=== PATIENT | female | born 1950 | race Caucasian/White ===

== ENCOUNTER → 2017-01-23 | Outpatient (CLI) | payer OTHER | LOC: FIMAGING 13:25 | PROVIDERS: ATTEND Radiology Diagnostic Radiology | DX: Z13.6 Encounter for screening for cardiovascular disorders (principal); Z95.5 Presence of coronary angioplasty implant and graft; Z88.2 Allergy status to sulfonamides ==

== ENCOUNTER → 2017-12-13 | Outpatient (CLI) | payer OTHER | LOC: BMCIMAGING 17:18 | PROVIDERS: ATTEND Family Medicine | DX: R07.81 Pleurodynia (principal) | CPT/HCPCS: 71101-PO ==

== ENCOUNTER → 2018-01-16 | Outpatient (CLI) | payer OTHER | LOC: FIMAGING 12:39 | DX: Z95.828 Presence of other vascular implants and grafts (principal) ==

== ENCOUNTER → 2019-01-22 | Outpatient (CLI) | payer OTHER | LOC: FIMAGING 11:58 | DX: I65.22 Occlusion and stenosis of left carotid artery (principal); Z79.82 Long term (current) use of aspirin; Z87.891 Personal history of nicotine dependence ==

== ENCOUNTER → 2019-02-17 | Outpatient (CLI) | payer OTHER | LOC: BMCIMAGING 15:59 | PROVIDERS: ATTEND Podiatrist Foot & Ankle Surgery | DX: M79.671 Pain in right foot (principal); M20.11 Hallux valgus (acquired), right foot; M19.071 Primary osteoarthritis, right ankle and foot ==

== ENCOUNTER → 2019-02-23 | Outpatient (CLI) | payer OTHER | LOC: BMCIMAGING 10:52 | PROVIDERS: ATTEND Podiatrist Foot & Ankle Surgery | DX: Z13.820 Encounter for screening for osteoporosis (principal); M81.0 Age-related osteoporosis without current pathological fracture ==

== ENCOUNTER 2019-03-02 15:11 | Observation (INO) | payer OTHER ==
[2019-03-02] MEDS ORDERED: NS 1,000 ML IV ONE (15:17)
--- NOTE | 2019-03-02 15:18 | EDPHY ---
H & P Time Seen by Provider: 03/02/19 15:18 HPI/ROS: HPI CHIEF COMPLAINT: AFib with RVR HISTORY OF PRESENT ILLNESS: This patient is a 68-year-old female she has a history of a stroke, as well as emphysema, she was getting a bone neck to me done today however the surgery had to be canceled as she went into AFib with RVR in the 160s. She arrives to the emergency room by ambulance in AFib with RVR. Her heart rate was 160s. Upon evaluating her she became very upset about potentially getting admitted to the hospital and started crying. She took a deep breath in and somewhat vague old. This actually center heart rate from 160s to 107 however unfortunately discrete back up to the 130s. She denies chest pain or shortness of breath. She can feel her heart racing. She has never had diagnosed AFib. Past Medical History: Significant medical history for CVA, emphysema Past Surgical History: Attempted bunionectomy Social History: Denies drugs alcohol tobacco. Family History: Noncontributory ROS REVIEW OF SYSTEMS: 10 Systems were reviewed and negative with the exception of the elements mentioned in the history of present illness. Exam Constitutional triage nursing summary reviewed, vital signs reviewed, awake/ alert. Heart rate 161 -170s irregular. Eyes normal conjunctivae and sclera, EOMI, PERRLA. HENT normal inspection, atraumatic, moist mucus membranes, no epistaxis, neck supple/ no meningismus, no raccoon eyes. Respiratory clear to auscultation bilaterally, normal breath sounds, no respiratory distress, no wheezing. Cardiovascular tachycardia, irregular, irregular pattern. Gastrointestinal soft, non-tender, no rebound, no guarding, normal bowel sounds, no distension, no pulsatile mass. Genitourinary no CVA tenderness. Musculoskeletal no midline vertebral tenderness, full range of motion, no calf swelling, no tenderness of extremities, no meningismus, good pulses, neurovascularly intact. Skin pink, warm, & dry, no rash, skin atraumatic. Neurologic awake, alert and oriented x 3, AAOx3, moves all 4 extremities equally, motor intact, sensory intact, CN II-XII intact, normal cerebellar, normal vision, normal speech. Psychiatric normal mood/affect. Heme/Lymph/Immune no lymphadenopathy. Differential Diagnosis: Includes but is not limited to in a particular order AFib with RVR, SVT, AVR ENT, electrolyte disturbance, dehydration, infection Medical Decision Making: Plan for this patient IV establishment monitoring and evaluation advisor obtain EKG, IV fluid bolus, basic electrolytes, and re-evaluate. Re-evaluation: EKG interpretation by me on record in [employer] system. Impression time of EKG 154: Sinus rhythm rate of 85, biatrial enlargement, no acute ischemia. Patient's EKG time 4:02 p.m. This is a repeat EKG due to her going back into AFib, this shows AFib rate of 166, there is some ST depression in the inferior leads to 3 AVF, V2 V3 most likely rate related. No ST elevation I have consult the hospitalist service for AFib with RVR. Patient in the emergency room with multiple episodes of AFib with RVR somewhat intermittent improving now after IV diltiazem. She is not on any anticoagulation. She does not have a diagnosis or history of AFib other than subjectively saying she has intermittent irregular heart rate and palpitations. Plan for admission to the hospitalist service for further evaluation and workup for AFib with RVR Dr. Hurtado agrees to admit. Source: Patient, EMS - Personal History Tetanus Vaccine Date: < 10 YEARS - Medical/Surgical History Hx Asthma: No Hx Chronic Respiratory Disease: No Hx Diabetes: No Hx Cardiac Disease: No Hx Renal Disease: No Hx Cirrhosis: No Hx Alcoholism: No Hx HIV/AIDS: No Hx Splenectomy or Spleen Trauma: No Other PMH: HTN, HYPOTHYROID, L BREAST LUMPECTP,U/CVA 2014 - Social History Smoking Status: Light smoker Constitutional: Initial Vital Signs Temperature (C) 36.8 C 03/02/19 15:21 Heart Rate 116 H 03/02/19 15:21 Respiratory Rate 16 03/02/19 15:21 Blood Pressure 170/115 H 03/02/19 15:21 O2 Sat (%) 96 03/02/19 15:21 O2 Delivery Mode Room Air Allergies/Adverse Reactions: SULFA Allergy (Uncoded 03/02/19 15:20) Home Medications: Medication Instructions Recorded Aspirin [Aspirin 325 mg (*)] 325 mg PO DAILY 01/16/16 Atorvastatin Calcium [Lipitor 20 20 mg PO DAILY 01/16/16 mg (*)] Lisinopril [Zestril 5 mg (*)] 5 mg PO DAILY 01/16/16 Metoprolol Tartrate [Lopressor 50 50 mg PO BID 01/16/16 mg (*)] amLODIPine BESYLATE [Amlodipine 5 mg PO BID 01/16/16 Besylate] traZODone [traZODONE 50MG (*)] 50 mg PO HS 01/16/16 Thyroid,Pork [[place] Thyroid] 90 mg PO DAILY@0600 03/02/19 Apixaban [Eliquis] 5 mg PO BID #60 tab 03/03/19 Medical Decision Making - Data Points Laboratory Results: Laboratory Results 03/02/19 15:20 03/02/19 15:20 Medications Given: Discontinued Medications Amlodipine Besylate (Norvasc) 5 mg PO BID [facility] Stop: 08/29/19 20:59 Last Admin: 03/03/19 10:35 Dose: 5 mg Apixaban (Eliquis) 5 mg PO BID [facility] Stop: 08/30/19 11:14 Last Admin: 03/03/19 11:34 Dose: 5 mg Aspirin (Aspirin) 325 mg PO DAILY [facility] Stop: 08/30/19 08:59 Last Admin: 03/03/19 10:35 Dose: 325 mg Atorvastatin Calcium (Lipitor) 20 mg PO DAILY [facility] Stop: 08/30/19 08:59 Last Admin: 03/03/19 10:36 Dose: Not Given Diltiazem HCl (Cardizem 25 Mg/5 Ml Vial) 15 mg IVP EDNOW ONE Stop: 03/02/19 15:59 Last Admin: 03/02/19 16:14 Dose: 15 mg Enoxaparin Sodium (Lovenox) 60 mg SC BID [facility] Stop: 08/29/19 20:59 Last Admin: 03/03/19 11:24 Dose: Not Given Sodium Chloride (Ns) 1,000 mls @ 0 mls/hr IV EDNOW ONE; Wide Open PRN Reason: Protocol Stop: 03/02/19 15:18 Last Admin: 03/02/19 15:45 Dose: 1,000 mls Diltiazem/Dextrose (Diltiazem 125mg/125ml (Premix)) 125 mls @ 0 mls/hr IV EDNOW ONE; As Directed PRN Reason: Protocol Stop: 03/02/19 16:13 Last Admin: 03/02/19 16:58 Dose: 125 mls Diltiazem/Dextrose (Diltiazem 125mg/125ml (Premix)) 125 mls @ 0 mls/hr IV CONT [facility]; Per Protocol PRN Reason: Protocol Stop: 08/29/19 17:29 Last Admin: 03/02/19 19:52 Dose: 125 mls Sodium Chloride (Ns) 1,000 mls @ 150 mls/hr IV CONT [facility] Stop: 08/29/19 17:29 Last Admin: 03/03/19 02:27 Dose: 1,000 mls Lisinopril (Zestril) 5 mg PO DAILY [facility] Stop: 08/30/19 08:59 Last Admin: 03/03/19 10:35 Dose: 5 mg Metoprolol Tartrate (Lopressor) 50 mg PO BID [facility] Stop: 08/29/19 20:59 Last Admin: 03/02/19 19:51 Dose: 50 mg Metoprolol Tartrate (Lopressor) 50 mg PO BID [facility] Stop: 08/30/19 09:59 Last Admin: 03/03/19 10:34 Dose: 50 mg Oxycodone HCl (Oxycodone Ir) 5 - 10 mg PO Q3HRS PRN PRN Reason: Pain, Severe Able to Take PO Stop: 03/12/19 17:21 Last Admin: 03/02/19 21:49 Dose: 10 mg Thyroid ([place] Thyroid) 90 mg PO DAILY06 [facility] Stop: 08/30/19 05:59 Last Admin: 03/03/19 06:07 Dose: 90 mg Trazodone HCl (Trazodone) 50 mg PO HS [facility] Stop: 08/29/19 20:59 Last Admin: 03/02/19 21:50 Dose: 50 mg Point of Care Test Results: Chemistry 03/02/19 15:31 POC Troponin I 0.00 ng/mL ng/mL (0.00-0.08) Departure - Departure Disposition: [facility] Acute Clinical Impression: Atrial fibrillation with RVR Condition: Fair
[2019-03-02 15:37] LABS: PLATELET COUNT 261 10^3/uL (150-400)
[2019-03-02 15:45] LABS: INR 0.86 (0.83-1.16); PROTIME(PATIENT) 11.4 SEC (12.0-15.0)
[2019-03-02] MEDS ORDERED: DILTIAZEM 25 MG/5 ML VIAL IVP ONE (15:58)
[2019-03-02] MEDS ORDERED: DILTIAZEM HCL/D5W 125 ML IV ONE (16:12)
[2019-03-02] MEDS ORDERED: ONDANSETRON DISINTEGRATING 4 MG TAB PO PRN (17:22)
[2019-03-02] MEDS ORDERED: oxyCODONE IR 5 MG TAB PO PRN (17:22)
[2019-03-02] MEDS ORDERED: HYDROCODONE/APAP 5/325 TAB PO PRN (17:22)
[2019-03-02] MEDS ORDERED: LORazepam 0.5 MG TAB PO PRN (17:22)
[2019-03-02] MEDS ORDERED: PROMETHAZINE HCL 25 MG/ML INJ IVP PRN (17:22)
[2019-03-02] MEDS ORDERED: HYDROmorphONE/DILAUDID 1 MG/ML INJ IVP PRN (17:22)
[2019-03-02] MEDS ORDERED: LORazepam 2 MG/ML INJ IVP PRN (17:22)
[2019-03-02] MEDS ORDERED: ACETAMINOPHEN 325 MG TAB PO PRN (17:22)
[2019-03-02] MEDS ORDERED: ONDANSETRON 4 MG/2 ML VIAL IVP PRN (17:22)
[2019-03-02] MEDS ORDERED: DILTIAZEM HCL/D5W 125 ML IV SCH (17:30)
--- NOTE | 2019-03-02 17:57 | PDGENHP ---
History and Physical - Chief Complaint a fib--sent from surgical center - History of Present Illness 68 yo F with PMH that includes CVA, hx of carotic artery stenosis s/p stenting to left ICA presenting from the surgical center where she was scheduled for bunionectomy. During her pre op assessment she was found to have rapid heart rate which was found to be a fib w/rvr and therefore surgery was aborted and she was sent to ER for further evaluation. AT the time of my evaluation she is in a fib with a rate in the 160s, she denies any sob, chest pain, dizziness during these episodes. She notes she has never been diagnosed with a fib before but she thinks she likely has runs of it from time to time as at least once a week she has symptoms very similar to her current symptoms which she describes as rapid heart rate, and sometimes palpitations. She states it will last several hours generally when it occurs. She admits she really does not like going to the doctor ever since her stroke and prolonged hospitalization, so she never had this worked up. History Information - Allergies/Home Medication List Allergies/Adverse Reactions: SULFA Allergy (Uncoded 03/02/19 15:20) Home Medications: Thyroid,Pork [[place] Thyroid] 15 mg PO MOWEFR 10/18/15 [Last Taken 02/27/19] Aspirin [Aspirin 325 mg (*)] 325 mg PO DAILY 01/16/16 [Last Taken 02/24/19] Atorvastatin Calcium [Lipitor 20 mg (*)] 20 mg PO DAILY 01/16/16 [Last Taken ] Lisinopril [Zestril 5 mg (*)] 5 mg PO DAILY 01/16/16 [Last Taken 03/02/19] Metoprolol Tartrate [Lopressor 50 mg (*)] 50 mg PO BID 01/16/16 [Last Taken ] amLODIPine BESYLATE [Amlodipine Besylate] 5 mg PO BID 01/16/16 [Last Taken 03/02] traZODone [traZODONE 50MG (*)] 50 mg PO HS 01/16/16 [Last Taken 03/01/19] Thyroid,Pork [[place] Thyroid] 90 mg PO DAILY@0600 03/02/19 [Last Taken 03/02/19] I have personally reviewed and updated: family history, medical history, social history, surgical history - Past Medical History CVA (residual speech difficulty and right hand weakness), hypertension Additional medical history: hypothyroid. carotid stenosis - Surgical History Additional surgical history: cartoid stent - Family History Additional family history: both parents CHF - Social History Smoking Status: Current every day smoker (1/2 ppd) Alcohol Use: None Drug Use: None Additional social history: Review of Systems Review of Systems: ROS: 10pt was reviewed & negative except for what was stated in HPI & below Physical Exam Physical Exam: Temp Pulse Resp BP Pulse Ox 36.8 C 86 16 123/76 H 96 03/02/19 16:38 03/02/19 16:38 03/02/19 16:38 03/02/19 16:38 03/02/19 16:38 Constitutional: no apparent distress, appears nourished Eyes: PERRL, anicteric sclera Ears, Nose, Mouth, Throat: moist mucous membranes, hearing normal Cardiovascular: irregularly irregular, tachycardia, No edema Respiratory: no respiratory distress, no rales or rhonchi Gastrointestinal: normoactive bowel sounds, soft, non-tender abdomen Genitourinary: no bladder tenderness Skin: warm, normal color Musculoskeletal: full muscle strength Neurologic: AAOx3, weakness (right hand slightly weak/clumsy) Psychiatric: interacting appropriately, not anxious, not encephalopathic Lab Data & Imaging Review 03/02/19 15:20 03/02/19 15:20 WBC 10.14 10^3/uL (3.80-9.50) H 03/02/19 15:20 RBC 4.92 10^6/uL (4.18-5.33) 03/02/19 15:20 Hgb 16.0 g/dL (12.6-16.3) 03/02/19 15:20 Hct 47.7 % (38.0-47.0) H 03/02/19 15:20 MCV 97.0 fL (81.5-99.8) 03/02/19 15:20 MCH 32.5 pg (27.9-34.1) 03/02/19 15:20 MCHC 33.5 g/dL (32.4-36.7) 03/02/19 15:20 RDW 13.2 % (11.5-15.2) 03/02/19 15:20 Plt Count 261 10^3/uL (150-400) 03/02/19 15:20 MPV 10.6 fL (8.7-11.7) 03/02/19 15:20 Neut % (Auto) 58.1 % (39.3-74.2) 03/02/19 15:20 Lymph % (Auto) 24.5 % (15.0-45.0) 03/02/19 15:20 [place] % (Auto) 10.3 % (4.5-13.0) 03/02/19 15:20 Eos % (Auto) 5.8 % (0.6-7.6) 03/02/19 15:20 Baso % (Auto) 0.8 % (0.3-1.7) 03/02/19 15:20 Nucleat RBC Rel Count 0.0 % (0.0-0.2) 03/02/19 15:20 Absolute Neuts (auto) 5.90 10^3/uL (1.70-6.50) 03/02/19 15:20 Absolute Lymphs (auto) 2.48 10^3/uL (1.00-3.00) 03/02/19 15:20 Absolute Monos (auto) 1.04 10^3/uL (0.30-0.80) H 03/02/19 15:20 Absolute Eos (auto) 0.59 10^3/uL (0.03-0.40) H 03/02/19 15:20 Absolute Basos (auto) 0.08 10^3/uL (0.02-0.10) 03/02/19 15:20 Absolute Nucleated RBC 0.00 10^3/uL (0-0.01) 03/02/19 15:20 Immature Gran % 0.5 % (0.0-1.1) 03/02/19 15:20 Immature Gran # 0.05 10^3/uL (0.00-0.10) 03/02/19 15:20 PT 11.4 SEC (12.0-15.0) L 03/02/19 15:20 INR 0.86 (0.83-1.16) 03/02/19 15:20 APTT 21.5 SEC (23.0-38.0) L 03/02/19 15:20 Sodium 137 mEq/L (135-145) 03/02/19 15:20 Potassium 4.4 mEq/L (3.5-5.2) 03/02/19 15:20 Chloride 108 mEq/L (97-110) 03/02/19 15:20 Carbon Dioxide 18 mEq/l (22-31) L 03/02/19 15:20 Anion Gap 11 mEq/L (6-14) 03/02/19 15:20 BUN 20 mg/dL (7-23) 03/02/19 15:20 Creatinine 0.7 mg/dL (0.6-1.0) 03/02/19 15:20 Estimated GFR > 60 03/02/19:20 Glucose 93 mg/dL (70-100) 03/02/19:20 Calcium 10.2 mg/dL (8.5-10.4) 03/02/19 15:20 Magnesium 2.2 mg/dL (1.6-2.3) 03/02/19 15:20 POC Troponin I 0.00 ng/mL (0.00-0.08) 03/02/19 15:31 NT-Pro-B Natriuret Pep 391 pg/mL (0-125) H 03/02/19 15:20 Visualized and Interpreted Chest x-ray results: Yes Chest X-Ray results: other (? mild interstitial edema) Visualized and Interpreted EKG results: Yes EKG additional interpertation: a fib w/rvr, VPC Assessment & Plan Assessment: 68 yo F with prior hx of CVA, carotid disease, HTN presenting from surgical center with a fib w/rvr # a fib w/rvr: new diagnosis but likely not new for her given her sxs of recurrent rapid hr/palpitations at home. Given dilt in ER and converted spontaneously and then returned to a fib w/rvr. Will continue dilt gtt overnight. She is on metoprolol at home and query if increased metop might rate control her or if she needs new medication altogether. started lovenox, treatment dose, cardiology consulted. # hx of CVA: reportedly due to carotid stenosis and she is s/p left carotid stent, has some residual speech issues and right hand weakness, on asa, statin, bb but not on AC prior to this # HTN: BP on arrival slightly high, will continue her home medications including amlodipine, lisinopril. Holding metoprolol while on dilt gtt # hypothyroid: continue home regimen # nicotine dependence: counseled on cessation # observation status # Patient new to my care. Old records reviewed and summarized as above. Care plan reviewed with ER doctor including dilt gtt overnight.
[2019-03-02] MEDS ORDERED: METOPROLOL TARTRATE 50 MG TAB ONE (19:50)
[2019-03-02] MEDS: amLODIPine BESYLATE 5 MG TAB PO SCH (19:51)
[2019-03-02] MEDS: ENOXAPARIN 60 MG/0.6 ML SYR SC SCH (19:52)
[2019-03-02] MEDS: NS 1,000 ML IV SCH (19:53)
[2019-03-02] MEDS ORDERED: METOPROLOL TARTRATE 50 MG TAB PO SCH (21:00)
[2019-03-02] MEDS ORDERED: traZODone 50 MG TAB PO SCH (21:00)
[2019-03-03] MEDS: NS 1,000 ML IV SCH (02:27)
[2019-03-03] MEDS ORDERED: THYROID 60 MG TAB PO SCH (06:00)
[2019-03-03] MEDS ORDERED: ASPIRIN 325 MG TAB PO SCH (09:00)
[2019-03-03] MEDS ORDERED: LISINOPRIL 5 MG TAB PO SCH (09:00)
[2019-03-03] MEDS ORDERED: ATORVASTATIN CALCIUM 20 MG TAB PO SCH (09:00)
[2019-03-03] MEDS ORDERED: METOPROLOL TARTRATE 50 MG TAB PO SCH (10:00)
[2019-03-03] MEDS: amLODIPine BESYLATE 5 MG TAB PO SCH (10:35)
[2019-03-03] MEDS ORDERED: APIXABAN 5 MG TAB PO SCH (11:15)
[2019-03-03] MEDS: ENOXAPARIN 60 MG/0.6 ML SYR SC SCH (11:24)
--- NOTE | 2019-03-03 11:32 | ECHO ---
[email or web address] [address] [address] Main: [phone] Echocardiography Examination Transthoracic Name: MOHINI LAMBERT MR#: [id number] Study Date: 03/03/2019 Study Time: 08:23 AM Date of : 1950 Age: 68 year(s) Height: 165.1 cm (65 in.) Weight: 63.5 kg (140 lb.) BSA: 1.7 m2 Gender: Female Examination: Echo Contrast: Image Quality: Adequate Rhythm: Heart Rate: BP: 1 mmHg/ Indication: New onset A fib Procedure Staff Referring Physician: [place]: Reading Physician: Kirk Choudhary MD Requesting Provider: Ordering Physician: Olga Hurtado Indication: New onset A fib Measurements Chambers AV/MV Label Value Normal Value Label Value Normal Value LVDd, 2D 4.7 cm (3.9cm - 5.3cm) AV PGmean 5 mmHg LVDs, 2D 3 cm (2.1cm - 4cm) AV Vmax 1.51 m/s IVSd, 2D 0.6 cm (0.6cm - 1.1cm) MV E Vmax 1.18 m/s LVPWd, 2D 0.9 cm MV A Vmax 0.98 m/s LVEF, BP 72 % (55% - 70%) MV E/A 1.2 LVEF, 2D 64 % (54% - 74%) MV E/E' lateral 15.7 LA Volume, BP 59 ml (22ml - 52ml) MV E/E' septal 15.1 (0.45 - 1.25) LADs, 2D 3.4 cm (2.7cm - 3.8cm) MV E' septal 0.08 m/s LAESV index, BP 34.7 ml/m2 MV E' lateral 0.08 m/s Additional Vessels MV E/E' mean 14.75 Label Value Normal Value MV E' mean 0.08 m/s AoAsc 3.6 cm TV/PV AoRoot, MM 3 cm (2.2cm - 3.7cm) Label Value Normal Value RA Pressure 10 mmHg RVSP 38 mmHg TR Pmax 28 mmHg TR Vmax 2.63 m/s Patient: MOHINI LAMBERT Study Date: 03/03/2019 Page 1 of 2 08:23 AM Conclusions Echocardiogram demonstrates normal left ventricular size and function. Normal right ventricular size and function. Mild left atrial enlargement. No significant valvular abnormality. RV systolic pressure 30 mm of mercury. Findings Left Ventricle: Left ventricle is normal in size. Normal global systolic left ventricular function. The ejection fraction, measured by Simpsons method, is 72 %. EF range is estimated at 70 % - 75 %. Left ventricle wall thickness is normal. There are no regional wall motion abnormalities. Left ventricular diastolic function parameters are normal. IVS: The septum is intact. Right Ventricle: Normal size right ventricle. Right ventricular systolic function is normal. Left Atrium: The left atrium is mildly dilated. IAS: Normal appearing atrial septum. Right Atrium: The right atrium is normal in size. Mitral Valve: Mitral valve appears structurally normal. Mild mitral regurgitation. No mitral valve stenosis. There is mild mitral annular calcification. Aortic Valve: Aortic leaflets exhibit normal cuspal separation. No aortic valve regurgitation. There is no aortic stenosis. The aortic valve is trileaflet. Tricuspid Valve: Tricuspid valve leaflets are normal in appearance and function. Mild tricuspid regurgitation. No tricuspid valve stenosis. Right Ventricular systolic pressure is measured at 38 mmHg. Pulmonary artery pressure normal. Pulmonic Valve: Pulmonic leaflets exhibit normal cuspal separation. No pulmonic valve regurgitation is evident. There is no pulmonic valve stenosis. Aorta: The aorta is normal. The aortic root size in M-mode measures 3.0 cm. The ascending aorta measures 3.6 cm. Aorta Measurements AoRoot, MM is 3.0 cm. Pulmonary Artery: The pulmonary artery morphology appears normal. IVC: The inferior vena cava is normal in size and course. Pericardium: A pericardial fat pad is present. No pericardial effusion. No pleural effusion present. Exam Details Procedure Ordered: Echo Procedure Status: Routine study Image Quality: Adequate Facility Location: Cardiac Echo 1 (No Signature Object) Patient: MOHINI LAMBERT Study Date: 03/03/2019 Page 2 of 2 08:23 AM [id number]
[2019-03-03 11:33] VITALS: BP 112/70
--- NOTE | 2019-03-03 13:51 | ASMTCMCOM ---
CM Note CM Note Notes: Pts case discussed in tx rounds. Pt is a 68 y/o female admitted for afib with rvr. Therapies have cleared pt to d/c home without any needs. CM available for changes. Plan: Independent Date Signed: 03/03/2019 01:51 PM Electronically Signed By:ANDRES José
--- NOTE | 2019-03-03 14:12 | GCON ---
[f rep st] CONSULTATION CARDIOLOGY CONSULTATION DATE OF CONSULTATION: 03/03/2019 REFERRING PHYSICIAN: Olga Hurtado MD REASON FOR CONSULTATION: New onset of atrial fibrillation. HISTORY OF PRESENT ILLNESS: The patient is a pleasant 68-year-old female with a past medical history of hypertension, hyperlipidemia, carotid artery disease, status post left carotid stent in 2015, his tory of CVA with residual left-sided speech difficulties and right-sided hand weakness, who was in he r usual state of health until yesterday when she presented to the outpatient surgical center for buni onectomy. During preoperative evaluation, she was found to be in atrial fibrillation with rapid vent ricular response. She presented to [facility] for further evaluation. ECG demonstra alicia atrial fibrillation with rapid ventricular response with rates in the 160s. She had no complaint s of shortness of breath, dyspnea, PND, orthopnea. She had no complaints of dizziness, lightheadedne ss, or near syncope. She had no complaints of chest pain with the onset of atrial fibrillation. She has no previous diagnosis of atrial fibrillation, although she states she has felt a rapid irregu lar heartbeat over the last 2 years, occurring infrequently, but when it does occurs, it last between 30 and 60 minutes. She states that these previous episodes other than noticing a rapid heart rhythm were not associated with dizziness, lightheadedness, near syncope or syncope. She has no complaints of exertional chest pain or chest pressure. She has no complaints of exertiona l intolerance or fatigue. She has no complaints of shortness of breath or dyspnea on exertion. She denies any previous history of coronary artery disease. Currently, at the time of my exam, she is resting comfortably. She has returned to sinus rhythm spon taneously. She is currently at a rate of 60 beats per minute. PAST MEDICAL HISTORY: Notable for hypertension, hyperlipidemia, history of CVA in October 2016, his tory of carotid disease, status post peripheral stent on October 2016, to the left carotid. PAST SURGICAL HISTORY: Include carotid stenting, wrist surgery, and tonsillectomy as a child. MEDICATIONS: On admission, include aspirin 325 mg daily, lisinopril 5 mg daily, atorvastatin 20 mg d aily, metoprolol tartrate 50 mg p.o. b.i.d., trazodone 50 mg q.h.s., and [place] Thyroid 90 mg daily. SOCIAL HISTORY: She is . She lives with her . She is an ongoing smoker. She smokes approximately 10 cigarettes a day since the age of 18. She drinks approximately 5 alcoholic beverage s per week. She has 1 son who is 40, who has type 1 diabetes. 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 FAMILY HISTORY: Both her parents from congestive heart failure in her 80s. She has siblings wi th no known coronary disease or atrial fibrillation. She does have an older brother who from ca ncer. EXAM: GENERAL: She is awake, alert, oriented, appropriate in no apparent distress. VITAL SIGNS: B lood pressure 112/70, heart rate currently 65 in sinus rhythm, respiratory rate of 15, oxygen saturat ion 92% on room air, temperature 36.8. NECK: There is no evidence of JVP or carotid bruits. LUNGS: Clear to auscultation bilaterally. CARDIAC: S1, S2. Regular rate and rhythm. No murmurs, rubs, or gallops. ABDOMEN: Soft, nontender, nondistended. There is no pulsatile mass or abdominal bruit. EXTREMITIES: She has no evidence of cyanosis, clubbing, or edema. DATA: Lab work demonstrates sodium of 137, potassium 4.4, chloride 108, bicarb 18, BUN 20, creatinin e 0.7, magnesium 2.2. N-terminal proBNP 391. Serial troponins are less than 0.012 x3. TSH slightly low at 0.223, free T4 within normal limits at 1.15. White blood cell count of 10.1, hemoglobin 16, hematocrit 47.7, platelet count 261. ECG dated 03/02/2019, at 1600 demonstrates atrial fibrillation with rapid ventricular response at 166 beats per minute with ST depression noted in the lateral leads in V4 through V6. Chest x-ray demonstrates mild prominent interstitial markings at the lung base that could represent s ome mild interstitial edema. Complete 2D echocardiogram demonstrated normal left and right ventricular function. No significant v alvular disease. RV systolic pressure 30 mmHg. Mild right atrial enlargement. IMPRESSION: 1. New onset of atrial fibrillation with rapid ventricular response documented on ECG on March 02 019, at 1600. 2. CHADS2-VASc score of 6 equates to a 9.8% per year stroke risk off anticoagulation. 3. Hypertension. 4. Peripheral vascular disease, status post left carotid stenting. 5. Smoking history. PLAN: 1. Agree with Eliquis 5 mg p.o. b.i.d. based off age, weight, and renal function. 2. Rate control strategy at this point with metoprolol tartrate 50 mg p.o. b.i.d. 3. Patient will need outpatient exercise nuclear stress test in the setting of abnormal ECG with atr ial fibrillation with ST-segment depressions and multiple risk factors for coronary disease, includin g hypertension, hyperlipidemia, peripheral vascular disease, and 50 year history of smoking. 4. Patient will need overnight oximetry for possible underlying obstructive sleep apnea. 5. Patient will follow up with me in the office after completion of exercise nuclear stress test and overnight oximetry for consideration of further management. /[id number]/MODL
--- NOTE | 2019-03-03 14:53 | PDDCSUM ---
Discharge Summary Discharge Summary: Date of Admission: 03/02/2019 Date of Discharge: 03/03/2019 Consults: Cardiology Procedures: TTE Followup: Cardiology, PCP Hospital Course Problem List: 68 yo F with prior hx of CVA, carotid disease, HTN presenting from surgical center with a fib w/rvr # a fib w/rvr: new diagnosis but likely not new for her given her sxs of recurrent rapid hr/palpitations at home. Given dilt and converted spontaneously. She is on metoprolol at home. Cardiology consulted who recommends continuing home Metoprolol, agrees with Eliquis 5 mg BID given elevated CHADsVASC, will have patient f/u with cardiology for stress testing given abnormal EKG, sleep study for further evaluation # hx of CVA: reportedly due to carotid stenosis and she is s/p left carotid stent, has some residual speech issues and right hand weakness, on asa, statin, bb but not on AC prior to this, discharging on Eliquis as above # HTN: BP on arrival slightly high, will continue her home medications including amlodipine, lisinopril. # hypothyroid: TSH suppressed to 0.22 on admission, recommended to discontinue 15 mcg MWF and f/u with PCP in 4-6 weeks for repeat testing and further titration of thyroid replacement medication # nicotine dependence: counseled on cessation Time spent on discharge was >35 minutes with >50% of time spent on patient education and counseling.
--- NOTE | 2019-03-04 05:38 | CPEKG ---
Test Reason : OPEN Blood Pressure : / mmHG Vent. Rate : 058 BPM Atrial Rate : 059 BPM P-R Int : 166 ms QRS Dur : 086 ms QT Int : 432 ms P-R-T Axes : 054 -06 020 degrees QTc Int : 425 ms Sinus rhythm Confirmed by Isela Muniz ([id number]) on 03/04/2019 5:37:50 AM Referred By: Olga Hurtado Confirmed By:Isela Muniz
[2019-03-04] MEDS ORDERED: THYROID 60 MG TAB PO SCH (06:00)
--- NOTE | 2019-03-06 07:47 | CPEKG ---
Test Reason : OPEN Blood Pressure : / mmHG Vent. Rate : 166 BPM Atrial Rate : 178 BPM P-R Int : 095 ms QRS Dur : 079 ms QT Int : 315 ms P-R-T Axes : -80 -05 074 degrees QTc Int : 524 ms Atrial fibrillation with rapid V-rate Ventricular premature complex Abnormal R-wave progression, early transition ST depression, probably rate related Confirmed by Guy Hargrove ([id number]) on 03/06/2019 7:46:02 AM Referred By: Guy Hargrove Confirmed By:Guy Hargrove
--- NOTE | 2019-03-06 07:47 | CPEKG ---
Test Reason : OPEN Blood Pressure : / mmHG Vent. Rate : 085 BPM Atrial Rate : 077 BPM P-R Int : 167 ms QRS Dur : 085 ms QT Int : 383 ms P-R-T Axes : 061 -10 052 degrees QTc Int : 456 ms Sinus rhythm LAE, consider biatrial enlargement Abnormal R-wave progression, early transition Confirmed by Guy Hargrove ([id number]) on 03/06/2019 7:46:02 AM Referred By: Guy Hargrove Confirmed By:Guy Hargrove
== END 2019-03-03 15:40 | disposition home or self-care (01) ==
LOC: EDUNIT# → INTOOBSV 16:39 → F2W 18:13
PROVIDERS: ADMIT Internal Medicine; ATTEND Internal Medicine
PROC: 5A2204Z Restoration of Cardiac Rhythm, Single (ICD-10-PCS; principal; 2019-03-02)
DX: I48.91 Unspecified atrial fibrillation (principal); M20.11 Hallux valgus (acquired), right foot; E86.9 Volume depletion, unspecified; I69.328 Other speech and language deficits following cerebral infarction; I69.331 Monoplegia of upper limb following cerebral infarction affecting right dominant side; Z79.82 Long term (current) use of aspirin; Z79.899 Other long term (current) drug therapy; Z95.820 Peripheral vascular angioplasty status with implants and grafts; I10 Essential (primary) hypertension; E03.9 Hypothyroidism, unspecified; J43.9 Emphysema, unspecified; F17.210 Nicotine dependence, cigarettes, uncomplicated
CPT/HCPCS: 71045; 93005; 93306; 96361; 96372; 96374; 96375; 97161; 97165; 99285; G0378; J1650; 84484-ER

== ENCOUNTER 2019-03-06 17:04 | Inpatient (IN) | payer OTHER ==
[2019-03-06] MEDS ORDERED: NS 1,000 ML IV ONE ×2 (17:21→17:30)
[2019-03-06] MEDS ORDERED: ONDANSETRON 4 MG/2 ML VIAL IVP ONE (17:21)
--- NOTE | 2019-03-06 17:27 | EDPHY ---
H & P Stated Complaint: vomitting blood and black stool today, started eliquis this week Time Seen by Provider: 03/06/19 17:16 HPI/ROS: CHIEF COMPLAINT: Vomiting blood HISTORY OF PRESENT ILLNESS: Patient is a 68-year-old female who comes to the emergency department complaining of vomiting blood as well as having dark stool. She was diagnosed with atrial fibrillation on Saturday of this week and started on Eliquis. She felt fine until today when she has had 3 episodes of bloody vomit and 3 episodes of black loose stool. She feels lightheaded. She is hypotensive here at triage. Severity: Severe Modifying factors: None REVIEW OF SYSTEMS: Constitutional: denies: chills, fever, recent illness, recent injury EENTM: denies: blurred vision, double vision, nose congestion Respiratory: denies: cough, shortness of breath Cardiac: See HPI denies: chest pain, irregular heart rate, palpitations Gastrointestinal/Abdominal: See HPI Genitourinary: denies: dysuria, frequency, hematuria, pain Musculoskeletal: denies: joint pain, muscle pain Skin: denies: lesions, rash, jaundice, bruising Neurological: denies: headache, numbness, paresthesia, tingling, dizziness, weakness Hematologic/Lymphatic: denies: blood clots, easy bleeding, easy bruising Immunologic/allergic: denies: HIV/AIDS, transplant 10 systems reviewed and negative except as noted EXAM: GENERAL: Well-appearing, well-nourished and in no acute distress. HEAD: Atraumatic, normocephalic. EYES: Pupils equal round and reactive to light, extraocular movements intact, sclera anicteric, conjunctiva are normal. ENT: TMs normal, nares patent, oropharynx clear without exudates. Moist mucous membranes. NECK: Normal range of motion, supple without lymphadenopathy or JVD. LUNGS: Breath sounds clear to auscultation bilaterally and equal. No wheezes rales or rhonchi. HEART: Regular rate and rhythm without murmurs, rubs or gallops. ABDOMEN: Soft, nontender, normoactive bowel sounds. No guarding, no rebound. No masses appreciated. Rectal: Black tarry stool sent to the lab BACK: No CVA tenderness, no spinal tenderness, step-offs or deformities EXTREMITIES: Normal range of motion, no pitting or edema. No clubbing or cyanosis. NEUROLOGICAL: Cranial nerves II through XII grossly intact. Normal speech, normal gait. 5/5 strength, normal movement in all extremities, normal sensation , normal reflexes PSYCH: Normal mood, normal affect. SKIN: Warm, dry, normal turgor, no visible rashes or lesions. Source: Patient, Family Exam Limitations: No limitations - Personal History Tetanus Vaccine Date: < 10 YEARS - Medical/Surgical History Hx Asthma: No Hx Chronic Respiratory Disease: No Hx Diabetes: No Hx Cardiac Disease: No Hx Renal Disease: No Hx Cirrhosis: No Hx Alcoholism: No Hx HIV/AIDS: No Hx Splenectomy or Spleen Trauma: No Other PMH: HTN, HYPOTHYROID, L BREAST LUMPECTP,U/CVA 2015, AFIB - Family History Significant Family History: No pertinent family hx - Social History Smoking Status: Light smoker Alcohol Use: None Constitutional: Initial Vital Signs Temperature (C) 36.7 C 03/06/19 17:07 Heart Rate 85 03/06/19 17:07 Respiratory Rate 18 03/06/19 17:07 Blood Pressure 77/55 L 03/06/19 17:07 O2 Sat (%) 98 03/06/19 17:07 O2 Delivery Mode Room Air Allergies/Adverse Reactions: SULFA Allergy (Uncoded 03/06/19 17:07) Home Medications: Medication Instructions Recorded Aspirin [Aspirin 325 mg (*)] 325 mg PO DAILY 01/16/16 Atorvastatin Calcium [Lipitor 20 20 mg PO HS 01/16/16 mg (*)] Lisinopril [Zestril 5 mg (*)] 5 mg PO DAILY 01/16/16 Metoprolol Tartrate [Lopressor 50 50 mg PO BID 01/16/16 mg (*)] amLODIPine BESYLATE [Amlodipine 5 mg PO BID 01/16/16 Besylate] traZODone [traZODONE 50MG (*)] 50 mg PO HS 01/16/16 Thyroid,Pork [[place] Thyroid] 90 mg PO DAILY@0600 03/02/19 Apixaban [Eliquis] 5 mg PO BID #60 tab 03/03/19 Thyroid,Pork [[place] Thyroid] 15 mg PO MOWEFR 03/06/19 Medical Decision Making - Diagnostics EKG Interpretation: An EKG obtained and was read and documented in trace view. Please see trace view for full reading and report. Atrial fibrillation with RVR A repeat EKG obtained and was read and documented in trace view. Please see trace view for full reading and report. Sinus rhythm, no acute ischemic changes ED Course/Re-evaluation: 5:25 p.m. I discussed the case with Dr. Bettencourt who will admit. I have ordered case central and blood transfusion as well as IV fluids. I have also page GI. Will place ICU bed. Will place 2nd large-bore IV 5:45 p.m. the patient has now gone into atrial fibrillation with RVR rate of 130 -150. Her blood pressure is 85/61. Will cardiovert. She is anticoagulated. 5:55 p.m. the patient spontaneously converted to sinus rhythm in her blood pressure is now 92/46. KCentra has arrived. Blood transfusion has not yet began. We have paged GI 2nd time. 6:[address] Ady Sherman from GI who will consult but states that they will not be able to scope until she is stabilized and reversed. Differential Diagnosis: Partial list of the Differential diagnosis considered include but were not limited to; upper GI bleed, anticoagulation, atrial fibrillation, hypotension and although unlikely based on the history and physical exam, I also considered infection, perforation. Critical Care Time: Critical care time spent by me, Dr. Andrea exclusive with this patient was 45 minutes, exclusive of the PA time exclusive of procedures. The organ system that was at risk was cardiovascular/Gastroenterology and I gave IV fluids, reversal, transfusion, admission to prevent worsening of the patient's condition - Data Points Laboratory Results: Laboratory Results 03/06/19 17:15 03/06/19 17:15 03/06/19 03/06/19 03/06/19 17:15 17:15 17:15 WBC RBC Hgb Hct MCV MCH MCHC RDW Plt Count MPV Neut % (Auto) Lymph % (Auto) [place] % (Auto) Eos % (Auto) Baso % (Auto) Nucleat RBC Rel Count Absolute Neuts (auto) Absolute Lymphs (auto) Absolute Monos (auto) Absolute Eos (auto) Absolute Basos (auto) Absolute Nucleated RBC Immature Gran % Immature Gran # PT INR APTT Sodium 135 mEq/L mEq/L (135-145) Potassium 4.2 mEq/L mEq/L (3.5-5.2) Chloride 105 mEq/L mEq/L (97-110) Carbon Dioxide 15 mEq/l L mEq/l (22-31) Anion Gap 15 mEq/L H mEq/L (6-14) BUN 66 mg/dL H mg/dL (7-23) Creatinine 1.1 mg/dL H mg/dL (0.6-1.0) Estimated GFR 49 Glucose 156 mg/dL H mg/dL (70-100) Calcium 9.3 mg/dL mg/dL (8.5-10.4) Total Bilirubin 1.0 mg/dL mg/dL (0.1-1.4) Conjugated Bilirubin 0.5 mg/dL mg/dL (0.0-0.5) Unconjugated Bilirubin 0.5 mg/dL mg/dL (0.0-1.1) AST 50 IU/L H IU/L (14-46) ALT 96 IU/L H IU/L (9-52) Alkaline Phosphatase 182 IU/L H IU/L (38-126) Total Protein 6.3 g/dL g/dL (6.3-8.2) Albumin 3.9 g/dL g/dL (3.5-5.0) Stool Occult Bld Scrn POSITIVE H (NEGATIVE) Patient ABO/Rh O POSITIVE Antibody Screen NEGATIVE Crossmatch IS Only See Detail 03/06/19 03/06/19 17:15 17:15 WBC 15.87 10^3/uL H 10^3/uL (3.80-9.50) RBC 3.95 10^6/uL L 10^6/uL (4.18-5.33) Hgb 12.8 g/dL g/dL (12.6-16.3) Hct 39.5 % % (38.0-47.0) MCV 100.0 fL H fL (81.5-99.8) MCH 32.4 pg pg (27.9-34.1) MCHC 32.4 g/dL g/dL (32.4-36.7) RDW 13.2 % % (11.5-15.2) Plt Count 266 10^3/uL 10^3/uL (150-400) MPV 11.7 fL fL (8.7-11.7) Neut % (Auto) 71.7 % % (39.3-74.2) Lymph % (Auto) 15.1 % % (15.0-45.0) [place] % (Auto) 9.4 % % (4.5-13.0) Eos % (Auto) 1.8 % % (0.6-7.6) Baso % (Auto) 0.5 % % (0.3-1.7) Nucleat RBC Rel Count 0.0 % % (0.0-0.2) Absolute Neuts (auto) 11.38 10^3/uL H 10^3/uL (1.70-6.50) Absolute Lymphs (auto) 2.39 10^3/uL 10^3/uL (1.00-3.00) Absolute Monos (auto) 1.49 10^3/uL H 10^3/uL (0.30-0.80) Absolute Eos (auto) 0.29 10^3/uL 10^3/uL (0.03-0.40) Absolute Basos (auto) 0.08 10^3/uL 10^3/uL (0.02-0.10) Absolute Nucleated RBC 0.00 10^3/uL 10^3/uL (0-0.01) Immature Gran % 1.5 % H % (0.0-1.1) Immature Gran # 0.24 10^3/uL H 10^3/uL (0.00-0.10) PT 15.2 SEC H SEC (12.0-15.0) INR 1.25 H (0.83-1.16) APTT 25.2 SEC SEC (23.0-38.0) Sodium Potassium Chloride Carbon Dioxide Anion Gap BUN Creatinine Estimated GFR Glucose Calcium Total Bilirubin Conjugated Bilirubin Unconjugated Bilirubin AST ALT Alkaline Phosphatase Total Protein Albumin Stool Occult Bld Scrn Patient ABO/Rh Antibody Screen Crossmatch IS Only Medications Given: Pantoprazole Sodium (Protonix) 40 mg IVP Q6H LUKAS Stop: 09/02/19 23:21 Last Admin: 03/06/19 17:32 Dose: 40 mg Discontinued Medications Sodium Chloride (Ns) 1,000 mls @ 0 mls/hr IV EDNOW ONE; Wide Open PRN Reason: Protocol Stop: 03/06/19 17:22 Last Admin: 03/06/19 17:29 Dose: 1,000 mls Prothrombin Complex Concent (Human) (Kcentra) 3,000 unit in 120 mls @ 480 mls/ hr IV ONCE ONE; Per Protocol PRN Reason: Protocol Stop: 03/06/19 18:14 Last Admin: 03/06/19 18:06 Dose: 120 mls Sodium Chloride (Ns) 1,000 mls @ 0 mls/hr IV ONCE ONE PRN Reason: Wide Open Stop: 03/06/19 17:31 Last Admin: 03/06/19 17:35 Dose: 1,000 mls Ondansetron HCl (Zofran) 4 mg IVP EDNOW ONE Stop: 03/06/19 17:22 Last Admin: 03/06/19 19:20 Dose: Not Given Departure - Departure Disposition: [facility] Inpatient Acute Clinical Impression: Upper GI bleed Atrial fibrillation Qualifiers: Atrial fibrillation type: unspecified Qualified Code(s): I48.91 - Unspecified atrial fibrillation Condition: Critical
[2019-03-06] MEDS ORDERED: PANTOPRAZOLE SODIUM 40 MG VIAL ONE (17:31)
[2019-03-06] MEDS: PANTOPRAZOLE SODIUM 40 MG VIAL IVP SCH (17:32)
--- NOTE | 2019-03-06 17:50 | CPEKG ---
Test Reason : OPEN Blood Pressure : / mmHG Vent. Rate : 148 BPM Atrial Rate : 160 BPM P-R Int : 097 ms QRS Dur : 078 ms QT Int : 276 ms P-R-T Axes : -17 -04 217 degrees QTc Int : 434 ms Atrial fibrillation Ventricular premature complex Confirmed by Stevenson Andrea ([id number]) on 03/06/2019 5:49:50 PM Referred By: Stevenson Andrea Confirmed By:Stevenson Andrea
[2019-03-06 17:52] LABS: PLATELET COUNT 266 10^3/uL (150-400)
[2019-03-06] MEDS ORDERED: oxyCODONE IR 5 MG TAB PO PRN (17:59)
[2019-03-06] MEDS ORDERED: HYDROmorphONE/DILAUDID 1 MG/ML INJ IVP PRN (17:59)
[2019-03-06] MEDS ORDERED: HYDROCODONE/APAP 5/325 TAB PO PRN (17:59)
[2019-03-06] MEDS ORDERED: PROMETHAZINE HCL 25 MG/ML INJ IVP PRN (17:59)
[2019-03-06] MEDS ORDERED: ACETAMINOPHEN 325 MG TAB PO PRN (17:59)
[2019-03-06] MEDS ORDERED: ONDANSETRON DISINTEGRATING 4 MG TAB PO PRN (17:59)
[2019-03-06] MEDS ORDERED: ONDANSETRON 4 MG/2 ML VIAL IVP PRN (17:59)
[2019-03-06] MEDS ORDERED: NS 1,000 ML IV SCH (18:00)
[2019-03-06] MEDS ORDERED: PROTHROMBIN COMPLEX CONCENTRATE IV ONE (18:00)
--- NOTE | 2019-03-06 18:02 | CPEKG ---
Test Reason : OPEN Blood Pressure : / mmHG Vent. Rate : 076 BPM Atrial Rate : 076 BPM P-R Int : 162 ms QRS Dur : 080 ms QT Int : 403 ms P-R-T Axes : 056 -16 044 degrees QTc Int : 454 ms Sinus rhythm Borderline left axis deviation Confirmed by Stevenson Andrea ([id number]) on 03/06/2019 6:01:09 PM Referred By: Olga Hurtado Confirmed By:Stevenson Andrea
--- NOTE | 2019-03-06 18:06 | PDGENHP ---
History and Physical - Chief Complaint vomiting blood - History of Present Illness 68 yo F with PMH of CVA and recent dx of afib, actually discharged on 03/03 for that with a new rx for eliquis. Patient had been feeling a bit lightheaded since yesterday per her report, but then today she began vomiting blood and having dark stools. She notes she vomited bright red blood 3 times today. She has not had significant abdominal pain. She has never had similar issues in the past. She was noted to be hypotensive and with rapid a fib in the ER with rates up to the 160s, given her ongoing hypotension she was sedated and cardioverted in ER. She denies any chest pain or SOB. History Information - Allergies/Home Medication List Allergies/Adverse Reactions: SULFA Allergy (Uncoded 03/06/19 17:07) Home Medications: Aspirin [Aspirin 325 mg (*)] 325 mg PO DAILY 01/16/16 [Last Taken 03/06/19] Atorvastatin Calcium [Lipitor 20 mg (*)] 20 mg PO HS 01/16/16 [Last Taken ] Lisinopril [Zestril 5 mg (*)] 5 mg PO DAILY 01/16/16 [Last Taken 03/06/19] Metoprolol Tartrate [Lopressor 50 mg (*)] 50 mg PO BID 01/16/16 [Last Taken ] amLODIPine BESYLATE [Amlodipine Besylate] 5 mg PO BID 01/16/16 [Last Taken 03/06] traZODone [traZODONE 50MG (*)] 50 mg PO HS 01/16/16 [Last Taken 03/05/19] Thyroid,Pork [[place] Thyroid] 90 mg PO DAILY@0600 03/02/19 [Last Taken 03/06/19] Thyroid,Pork [[place] Thyroid] 15 mg PO MOWEFR 03/06/19 [Last Taken 03/06/19] I have personally reviewed and updated: family history, medical history, social history, surgical history - Past Medical History atrial fibrillation, CVA (residual speech difficulty and right hand weakness), hypertension Additional medical history: hypothyroid. carotid stenosis - Surgical History Reports: no pertinent surgical hx Additional surgical history: cartoid stent - Family History Additional family history: both parents CHF - Social History Smoking Status: Light smoker Alcohol Use: None Drug Use: None Additional social history: Review of Systems Review of Systems: ROS: 10pt was reviewed & negative except for what was stated in HPI & below Physical Exam Physical Exam: Temp Pulse Resp BP Pulse Ox 36.7 C 85 18 77/55 L 98 03/06/19 17:07 03/06/19 17:07 03/06/19 17:07 03/06/19 17:07 03/06/19 17:07 Constitutional: chronically ill appearing, uncomfortable Eyes: PERRL, anicteric sclera Ears, Nose, Mouth, Throat: hearing normal, dry mucous membranes Cardiovascular: irregularly irregular, tachycardia, No edema Respiratory: no respiratory distress, no rales or rhonchi Gastrointestinal: normoactive bowel sounds, soft, non-tender abdomen Genitourinary: no bladder tenderness Skin: warm, normal color Musculoskeletal: no muscle tenderness Neurologic: AAOx3 Psychiatric: interacting appropriately, not anxious, not encephalopathic Lab Data & Imaging Review 03/06/19 20:00 03/06/19 17:15 WBC 15.87 10^3/uL (3.80-9.50) H 03/06/19 17:15 RBC 3.95 10^6/uL (4.18-5.33) L 03/06/19 17:15 Hgb 12.8 g/dL (12.6-16.3) 03/06/19 17:15 Hct 39.5 % (38.0-47.0) 03/06/19 17:15 MCV 100.0 fL (81.5-99.8) H 03/06/19 17:15 MCH 32.4 pg (27.9-34.1) 03/06/19 17:15 MCHC 32.4 g/dL (32.4-36.7) 03/06/19 17:15 RDW 13.2 % (11.5-15.2) 03/06/19 17:15 Plt Count 266 10^3/uL (150-400) 03/06/19 17:15 MPV 11.7 fL (8.7-11.7) 03/06/19 17:15 Neut % (Auto) 71.7 % (39.3-74.2) 03/06/19 17:15 Lymph % (Auto) 15.1 % (15.0-45.0) 03/06/19 17:15 [place] % (Auto) 9.4 % (4.5-13.0) 03/06/19 17:15 Eos % (Auto) 1.8 % (0.6-7.6) 03/06/19 17:15 Baso % (Auto) 0.5 % (0.3-1.7) 03/06/19 17:15 Nucleat RBC Rel Count 0.0 % (0.0-0.2) 03/06/19 17:15 Absolute Neuts (auto) 11.38 10^3/uL (1.70-6.50) H 03/06/19 17:15 Absolute Lymphs (auto) 2.39 10^3/uL (1.00-3.00) 03/06/19 17:15 Absolute Monos (auto) 1.49 10^3/uL (0.30-0.80) H 03/06/19 17:15 Absolute Eos (auto) 0.29 10^3/uL (0.03-0.40) 03/06/19 17:15 Absolute Basos (auto) 0.08 10^3/uL (0.02-0.10) 03/06/19 17:15 Absolute Nucleated RBC 0.00 10^3/uL (0-0.01) 03/06/19 17:15 Immature Gran % 1.5 % (0.0-1.1) H 03/06/19 17:15 Immature Gran # 0.24 10^3/uL (0.00-0.10) H 03/06/19 17:15 Stool Occult Bld Scrn POSITIVE (NEGATIVE) H 03/06/19 17:15 Crossmatch IS Only See Detail 03/06/19 17:15 Visualized and Interpreted EKG results: Yes EKG additional interpertation: initial ECG with a fib w/rvr, f/u showing NSR- non ischemic Assessment & Plan Assessment: Upper GI bleed (Acute) Atrial fibrillation (Acute) 68 yo F with hx of CVA and recent dx of a fib started on eliquis this week presenting with GI bleed # upper GI bleed: with hematemesis and melena prior to presentation in setting of recently being started on AC as well as being on full dose asa. She has been given Kcentra in ER and has been ordered for 2 units PRBCs given rapid blood loss (h/h normal on presentation). GI consulted and plans for EGD in am. IV PPI TID. Hold asa/eliquis # a fib w/rvr: with associated hypotension in the setting of above, cardioverted in ER under sedation but unfortunately went back into a fib shortly after and then spontaneously converted again. Will try low dose IV dilt if recurs. Does have CHADSVasc of 6, however obviously high risk of bleed as above, for sure should not resume AC and full dose aspirin # hypotension: in setting of acute blood loss as well as a fib, holding anti- hypertensives, has been responding to IVF, a fib also contributing # LAZARUS: hemodynamically mediated given GI bleed/hypotension, IVF/monitoring # CVA: with only mild residual sxs of speech issues and some right hand clumsiness, was related to carotid disease as next # carotid disease: s/p stenting # HTN: will hold HTNsive medications given hypotension # acute blood loss anemia: rapid blood loss as above, transfusing, monitoring pressures # IP status, high risk requiring ICU level care, in addition to usual admission time an additional > 35 min care time spent in critical care of this patient, coordinating care with specialists, interpreting labs and managing patient at bedside with nursing FC Patient new to my care. Old records reviewed and summarized as above. Care plan reviewed with ER doctor and GI as above. Further hx obtained from patients present at bedside.
[2019-03-06 18:13] LABS: INR 1.25 (0.83-1.16); PROTIME(PATIENT) 15.2 SEC (12.0-15.0)
[2019-03-06] MEDS: ATORVASTATIN CALCIUM 20 MG TAB PO SCH (21:26)
[2019-03-06] MEDS: LORazepam 2 MG/ML INJ IVP PRN (22:11)
[2019-03-07 05:10] LABS: PLATELET COUNT 176 10^3/uL (150-400)
[2019-03-07] MEDS: PANTOPRAZOLE SODIUM 40 MG VIAL IVP SCH (06:38)
[2019-03-07] MEDS: THYROID 60 MG TAB PO SCH (06:38)
--- NOTE | 2019-03-07 06:57 | PDMN ---
Medical Necessity Medical necessity: Pt meets IP criteria as of 03/06/2019 per and MCG M-180 ( Upper GI Bleed); est los > 2 mn for ongoing tx and management of upper GI bleed with hematemesis and melena, pt recently started on AC, having hypotension, also in afib with RVR; requiring Kcentra, PRBC transfusion, IVF, further workup , and ICU level care.
--- NOTE | 2019-03-07 08:45 | SOAPPROG ---
SOAP Progress Note Assessment/Plan: Assessment:Plan: see full dictated consult to follow 68 y/o female with afib on Eliquis and ASA with UGI bleed was on rapid Afib last night now converted got k-centra BUN cr ratio down c/w hydration and no sig ongoing gi bleed did drop her HB c/w few unit bleed EGD this am with anesthesia Bryan Pereira MD [phone] 03/07/19 08:41 Objective: Vital Signs Temp Pulse Resp BP Pulse Ox 36.9 C 93 18 119/68 96 03/06/19 19:06 03/07/19 08:00 03/07/19 08:00 03/07/19 06:00 03/07/19 08:00 Laboratory Results 03/07/19 04:40 03/06/19 03/07/19 03/08/19 05:59 05:59 05:59 Intake Total 2800 Output Total 1000 Balance 1800 PT 15.2 SEC (12.0-15.0) H 03/06/19 17:15 INR 1.25 (0.83-1.16) H 03/06/19 17:15 ICD10 Worksheet Patient Problems: Problems Problem Status Onset Atrial fibrillation Acute Upper GI bleed Acute Atrial fibrillation with RVR Acute CVA (cerebral vascular accident) Acute Forehead laceration Acute
[2019-03-07] MEDS ORDERED: LIDOCAINE 2% 2 ML INJ ONE (09:25)
[2019-03-07] MEDS ORDERED: PROPOFOL 200 MG/20 ML VIAL ONE (09:25)
--- NOTE | 2019-03-07 09:27 | PDANEPAE ---
ANE History of Present Illness GI bleed ANE Past Medical History - Cardiovascular History Hx Hypertension: Yes Hx Arrhythmias: Yes Hx Chest Pain: No Hx Coronary Artery / Peripheral Vascular Disease: No Hx CHF / Valvular Disease: No Hx Palpitations: No Cardiovascular History Comment: a fib - Pulmonary History Hx COPD: No Hx Asthma/Reactive Airway Disease: No Hx Recent Upper Respiratory Infection: No Hx Oxygen in Use at Home: No Hx Sleep Apnea: Yes Sleep Apnea Screening Result - Last Documented: Negative - Neurologic History Hx Cerebrovascular Accident: Yes Neurologic History Comment: carotid stent - Endocrine History Hx Diabetes: No Hypothyroid: No Hyperthyroid: No Obesity: no - Renal History Hx Renal Disorders: No - Liver History Hx Hepatic Disorders: No - Cancer History Hx Cancer: No - Congenital Disorder History Hx Congenital Disorders: No - GI History GERD: mild Hx Gastrointestinal Disorders: Yes - Chronic Pain History Chronic Pain: No ANE Review of Systems Review of systems is: negative Review of Systems: ANE Patient History - Allergies Allergies/Adverse Reactions: SULFA Allergy (Uncoded 03/06/19 17:07) - Home Medications Home medications: home medication list seen and reviewed Home Medications: Aspirin [Aspirin 325 mg (*)] 325 mg PO DAILY 01/16/16 [Last Taken 03/06/19] Atorvastatin Calcium [Lipitor 20 mg (*)] 20 mg PO HS 01/16/16 [Last Taken ] Lisinopril [Zestril 5 mg (*)] 5 mg PO DAILY 01/16/16 [Last Taken 03/06/19] Metoprolol Tartrate [Lopressor 50 mg (*)] 50 mg PO BID 01/16/16 [Last Taken ] amLODIPine BESYLATE [Amlodipine Besylate] 5 mg PO BID 01/16/16 [Last Taken 03/06] traZODone [traZODONE 50MG (*)] 50 mg PO HS 01/16/16 [Last Taken 03/05/19] Thyroid,Pork [[place] Thyroid] 90 mg PO DAILY@0600 03/02/19 [Last Taken 03/06/19] Thyroid,Pork [[place] Thyroid] 15 mg PO MOWEFR 03/06/19 [Last Taken 03/06/19] - NPO status NPO Status: no food or drink >8 hours NPO Since - Liquids (Date): 03/06/19 NPO Since - Liquids (Time): 00:00 - Anes Hx Anes Hx: no prior problems - Smoking Hx Smoking Status: Light smoker - Alcohol Use Alcohol Use: None - Family Anes Hx Family Anes Hx: none ANE Labs/Vital Signs - Labs Result Diagrams: 03/07/19 07:50 03/07/19 04:40 - Vital Signs Blood Pressure: 118/74 Heart Rate: 92 Respiratory Rate: 19 O2 Sat (%): 95 Height: 165.1 cm Weight: 63.503 kg ANE Physical Exam - Airway Neck exam: FROM Mallampati Score: Class 2 Mouth exam: normal dental/mouth exam - Pulmonary Pulmonary: no respiratory distress, clear to auscultation - Cardiovascular Cardiovascular: regular rate and rhythym, no murmur, rub, or gallop - ASA Status ASA Status: III, E ANE Anesthesia Plan Anesthesia Plan: GA with mask Total IV Anesthesia: Yes
[2019-03-07] MEDS ORDERED: NALOXONE HCL 0.4 MG/ML INJ IVP PRN (09:47)
--- NOTE | 2019-03-07 09:48 | POSTANESTH ---
Post Anesthetic Evaluation Cardiovascular Status: Normal, Stable Respiratory Status: Normal, Stable Level of Consciousness/Mental Status: Can Participate in Eval Pain Control: Adequate, Prn Tx Ordered Nausea/Vomiting Control: Adequate, Prn Tx Ordered Complications Possibly Related to Anesthesia: None Noted
--- NOTE | 2019-03-07 10:06 | GIREPORT ---
[facility] Surgical Services - Endoscopy Department Patient Name: Jeanie Rush Procedure Date: 03/07/2019 9:29 AM Patient Type: Inpatient Attending MD/ ER Physician: Bryan Pereira MD Procedure: Upper GI endoscopy Indications: Acute post hemorrhagic anemia, Hematemesis, Melena Providers: Bryan Pereira MD Referring MD: Fatuma Fernandez MD, Kirk Choudhary MD Medicines: Propofol per Anesthesia = IV general with spont resps Complications: No immediate complications. Estimated blood loss: Minimal. Description of Procedure: After obtaining informed consent, the endoscope was passed under direct vision. Throughout the procedure, the patient's blood pressure, pulse, and oxygen saturations were monitored continuously. The Endoscope was intro duced through the mouth, and advanced to the third part of duodenum. The uppe r GI endoscopy was accomplished without difficulty. The patient tolerated th e procedure well. Findings: LA Grade B (one or more mucosal breaks greater than 5 mm, not extending between the tops of two mucosal folds) esophagitis with no bleeding was found at the gastroesophageal junction. Biopsies were taken with a cold forceps for histology. Estimated blood loss was minimal. One non-bleeding cratered gastric ulcer with no stigmata of bleeding wa s found on the lesser curvature of the gastric antrum. The lesion was 6 m m in largest dimension. Biopsies were taken with a cold forceps for histolog y. Estimated blood loss was minimal. Diffuse inflammation characterized by erosions, erythema and granularit y was found in the gastric antrum. Biopsies were taken with a cold forceps fo r histology. Estimated blood loss was minimal. The examined duodenum was normal. The exam was otherwise without abnormality. Estimated Blood Loss: Estimated blood loss was minimal. Post Op Diagnosis: - LA Grade B reflux esophagitis. Rule out Frye's esophagus. Biopsied . - Non-bleeding gastric ulcer with no stigmata of bleeding. Biopsied. - Gastritis. Biopsied. - Normal examined duodenum. - The examination was otherwise normal. Recommendation: - Await pathology results. - My office will call with the pathology result with 5-7 days. If you h ave not heard from my office by 14, do not assume the pathology is tanner l, please call [phone] to get the pathology results. - Use Protonix (pantoprazole) 40 mg PO BID for 4 weeks. Then daily for at least 8 weeks total. If she needs to remain on aspirin and Eliquis she may need PPI nursing home. - If she has Frye's, then PPI will be needed indefinitely. - Ask cardiology if a different anti-platelet medication could be used which is not associated with ulcers - i.e. Plavix - Repeat upper endoscopy in 3 months to check healing. - Advance diet as tolerated. - Return patient to ICU for ongoing care. - Thank you for allowing me to help in your patient's care. Do not hesi beltran to call with any questions. Attending Participation: I personally performed the entire procedure. Randall Damon M.D Bryan Pereira MD 03/07/2019 10:05:54 AM This report has been signed electronicallyMattmarcow MD Randall Number of Addenda: 0 Note Initiated On: 03/07/2019 9:29 AM [email or web address]
--- NOTE | 2019-03-07 10:08 | GCON ---
[[facility]] CONSULTATION DATE OF CONSULTATION: 03/07/2019 REASON FOR CONSULTATION: Upper GI bleed. I have been asked by Dr. Hurtado to see Ms. Rush in consultation for hematemesis and melena and decreased hemoglobin and hematocrit consistent with upper GI bleed. She is a pleasant 68-year-old fe male with a past medical history significant for carotid stenosis with a CVA with mild right-sided we akness, who was documented with atrial fibrillation last week and began Eliquis. She is also on a fu ll-strength aspirin. She had both hematemesis and melena starting yesterday. She noticed that she w as weak and dizzy when she was trying to clean her house and when she started to have hematemesis, mark presented to the hospital for evaluation. She was somewhat hypotensive with rapid atrial fibrillat ion in the ER and was cardioverted and fluid resuscitated in the ER. She was transferred up to the [facility] where she had another episode of rapid atrial fibrillation last night. She has had no significa nt hematemesis, but she still continues to pass some melena. Her hemoglobin has dropped from 16 on A pril 15 to 10.0 this morning. The kade was 9.1 at 4:40 this morning. She is currently back in sinu s rhythm with stable blood pressure. She has never had any history of peptic ulcer disease or GI ble ed in the past. She is now admitted with the above, and I am called to help evaluate and treat in at [facility]. 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 PAST SURGICAL HISTORY: Carotid stent. FAMILY HISTORY: Mother had a coronary artery disease and bypass. Both parents had CHF. There is no colon cancer or colon polyps to her knowledge. SOCIAL HISTORY: She smokes about half a pack a day. Alcohol is rare intake. ALLERGIES: Sulfa. MEDICATIONS: At home included aspirin 325 mg, Lipitor, lisinopril, metoprolol, amlodipine, trazodone , and thyroid replacement. In hospital, she is written for Tylenol p.r.n., [place] p.r.n., Lipitor 20 mg daily, Dilaudid 0.2 to 0. 4 p.r.n., Ativan p.r.n., Zofran 4 mg IV q.4h p.r.n., oxycodone 5 to 10 mg q.3 p.r.n., Protonix 40 mg IV q.6, Leonard Thyroid 90 mg daily with an additional 15 mg Saturday, Saturday, and Saturday. She also received Kcentra in the emergency room for her reversal of her Eliquis, and her Eliquis is held. REVIEW OF SYSTEMS: A complete review of systems was performed and is negative other than noted in th e HPI. Pertinent positives include hematemesis, melena, her palpitations related to her atrial fibri llation, and she also has mild abdominal cramping, likely related to the laxative effect of the blood . PHYSICAL EXAM: GENERAL: Well-developed, well-nourished female sitting in her chair in no acute dist ress. Blood pressure is 118/74. Pulse is 93. Respiratory rate is 18. She is 96% on room air. OCTAVIA NT: Eyes anicteric. KELLEY, EOMI. Mouth: No lesions. Moist membranes. NECK: Supple. Full range of motion. No JVD. BACK: No spine tenderness. No CVA tenderness. LUNGS: Clear. CARDIAC: S1, S 2. Regular rate and rhythm. ABDOMEN: Bowel sounds are normal in pitch and frequency. ABDOMEN: So ft with minimal tenderness on deep palpation. No rebound. No guarding. No hepatosplenomegaly. EXT REMITIES: No cyanosis, clubbing, or edema. NEUROLOGIC: Cranial nerves intact. She does have some right hand weakness, and she does have mild change in her speech. She is alert and oriented x3. SKI N: No stigmata of advanced liver disease. No rashes. LABORATORY DATA: When she came into the emergency room, H and H were 12.8 and 39.5, dropped to 10.6 and 31.6, 9.1 and 27.7, and this morning at 7:50 a.m. they are 10.0 and 30.4. Her BUN and creatinine ratio was 66 and 1.1 when she came in; is currently BUN 41 and creatinine 0.6. Other laboratory rachel a from this morning include sodium 139, potassium 3.6, chloride 117, glucose 78, calcium 7.9. From , bilirubin 1.0, AST 50, ALT 96, alkaline phosphatase 182. Historical lab data: She has had intermittent AST and ALT elevations. On February 21, 2019, her AST was 42, her ALT was 59. On March 02, hemoglobin 16.0, hematocrit 47.7. She is heme-positive. Chest x-ray from March 02 revealed mild prominent interstitial markings at lung bases that could repr esent small amount of edema. ASSESSMENT: 1. Upper GI bleed with hematemesis and melena, posthemorrhagic anemia, elevated BUN/creatinine ratio . 2. History of atrial fibrillation with onset of rapid atrial fibrillation noted last week and again in the emergency room and again last night. 3. Hypertension. 4. History of CVA with some residual deficits. 5. Carotid stenosis. 6. Hypothyroidism. RECOMMENDATIONS: 1. Urgent EGD with anesthesia for evaluation of upper GI bleed. 2. Serial H and Hs. Keep hemoglobin at least greater than 7 or as per Cardiology. 3. Hold aspirin for now. 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 4. Treatment of her other medical issues as per hospitalist. 5. Given her recent rapid atrial fibrillation and other medical issues, this would be a higher risk procedure than normal, and I have asked Anesthesia to be present for the entire procedure, not only t o perform anesthesia and monitor the patient for the above. 6. Continue Protonix as ordered. I will likely alter that based on the endoscopic findings. Thank you for allowing me to participate in this patient's healthcare. Do not hesitate to call me wi th any questions. Copy requested to: STEFFANIE BLANCO /[id number]/MODL
[2019-03-07] MEDS: PANTOPRAZOLE SODIUM 40 MG TAB PO SCH ×2 (10:27→20:01)
--- NOTE | 2019-03-07 12:49 | ASMTCMCOM ---
CM Note CM Note Notes: Pt is a 68 yo F who lives with her , Abhijit. Pt underwent Upper GI endoscopy. GI consulted. PT pending eval; OT rec:home independent. CM to follow. Plan: TBD Date Signed: 03/07/2019 12:48 PM Electronically Signed By:ANDRES Malik
--- NOTE | 2019-03-07 15:05 | HOSPPROG ---
Hospitalist Progress Note Assessment/Plan: 68yo F with h/o ischemic CVA 2/2 vascular dz, afib recently started on eliquis here w/hemodynamically significant GIB. #Upper GI bleed w/ABLA: Stabilized - EGD w/non-bleeding gastric ulcer, esophagitis - PO PPI BID x4 weeks, then daily - Recheck H/H in AM #Atrial fibrillation: Rapid rates on arrival, now improved. [id number]=7, indicating 10% yearly stroke risk - Holding eliquis with plan to restart tomorrow AM and monitor - Resume metoprolol this evening #H/o CVA: Due to occluded L carotid bulb/ICA s/p stenting. Residual dysarthria. - Stopping aspirin/antiplatelets indefinitely, continue statin #Hypotension: Resolved. #LAZARUS: Resolved. #HTN: On metop. Continue to hold amlodipine and lisinopril. #Hypothyroid: Continue replacement. VTE ppx: SCDs Code: full Dispo: Remain inpatient. Transfer to floor. Subjective: EGD this AM. Feeling well since except for some bloating. No bloody/ dark stools or vomiting. Objective: Vital Signs Temp Pulse Resp BP Pulse Ox 37 C 84 23 H 136/79 H 94 03/07/19 12:00 03/07/19 12:00 03/07/19 12:00 03/07/19 12:00 03/07/19 10:54 Laboratory Results 03/07/19 07:50 03/07/19 04:40 03/06/19 03/07/19 03/08/19 05:59 05:59 05:59 Intake Total 2800 360 Output Total 1000 Balance 1800 360 PT 15.2 SEC (12.0-15.0) H 03/06/19 17:15 INR 1.25 (0.83-1.16) H 03/06/19 17:15 - Physical Exam Constitutional: no apparent distress, appears nourished, not in pain Eyes: PERRL, anicteric sclera, EOMI Ears, Nose, Mouth, Throat: moist mucous membranes, hearing normal, ears appear normal, no oral mucosal ulcers Cardiovascular: no murmur, rub, or gallop, tachycardia, No edema Respiratory: no respiratory distress, no rales or rhonchi, clear to auscultation Gastrointestinal: normoactive bowel sounds, soft, non-tender abdomen, no palpable masses Genitourinary: no bladder fullness, no bladder tenderness, no renal bruits Skin: no rashes or abrasions, no fluctuance, no induration Musculoskeletal: full muscle strength, no muscle tenderness, normal joint ROM Neurologic: AAOx3, other (mild dysarthria) Psychiatric: interacting appropriately ICD10 Worksheet Patient Problems: Problems Problem Status Onset Atrial fibrillation Acute Upper GI bleed Acute Atrial fibrillation with RVR Acute CVA (cerebral vascular accident) Acute Forehead laceration Acute
[2019-03-07] MEDS: ATORVASTATIN CALCIUM 20 MG TAB PO SCH (20:01)
[2019-03-07] MEDS: METOPROLOL TARTRATE 50 MG TAB PO SCH (20:02)
[2019-03-07] MEDS: traZODone 50 MG TAB PO SCH (20:02)
[2019-03-07] MEDS: LORazepam 2 MG/ML INJ IVP PRN (21:43)
[2019-03-08] MEDS: THYROID 60 MG TAB PO SCH (05:48)
[2019-03-08] MEDS: METOPROLOL TARTRATE 50 MG TAB PO SCH ×3 (07:35→21:15)
[2019-03-08] MEDS: APIXABAN 5 MG TAB PO SCH ×2 (07:35→21:13)
[2019-03-08] MEDS: PANTOPRAZOLE SODIUM 40 MG TAB PO SCH ×2 (07:35→21:13)
[2019-03-08] MEDS ORDERED: METOPROLOL TARTRATE 25 MG TAB PO ONE (08:50)
--- NOTE | 2019-03-08 11:23 | HOSPPROG ---
Hospitalist Progress Note Assessment/Plan: 68yo F with h/o ischemic CVA 2/2 vascular dz, afib recently started on eliquis here w/hemodynamically significant GIB. #Upper GI bleed w/ABLA: Stabilized - EGD w/non-bleeding gastric ulcer, esophagitis - PO PPI BID x4 weeks, then daily - Recheck H/H tomorrow AM and monitor for bleeding now that anticoagulation has restarted #Atrial fibrillation: Intermittent rapid rates. [id number]=3, indicating 10% yearly stroke risk - Restarting eliquis this AM - Increase metoprolol 50->75mg bid #H/o CVA: Due to occluded L carotid bulb/ICA s/p stenting. Residual dysarthria. - Stopped aspirin/antiplatelets indefinitely, continue statin #Hypotension: Resolved. #LAZARUS: Resolved. #HTN: On metop as above. Continue to hold amlodipine and lisinopril. #Hypothyroid: Continue replacement. VTE ppx: SCDs Code: full Dispo: Remain inpatient. Transfer from SDU to PCU. Possibly home tomorrow if h/ h stable and rates better. Subjective: 2 episodes of rapid afib early this AM. She was symptomatic with dizziness. First episode resolved spontaneously. Second episode resolved after giving AM dose of metoprolol. No further blood in stool or vomit. Objective: Vital Signs Temp Pulse Resp BP Pulse Ox 36.8 C 79 16 148/97 H 93 03/08/19 08:00 03/08/19 09:21 03/08/19 08:00 03/08/19 09:21 03/08/19 08:00 Laboratory Results 03/08/19 04:40 03/08/19 04:40 03/07/19 03/08/19 03/09/19 05:59 05:59 05:59 Intake Total 2800 1860 240 Output Total 1000 Balance 1800 1860 240 PT 15.2 SEC (12.0-15.0) H 03/06/19 17:15 INR 1.25 (0.83-1.16) H 03/06/19 17:15 - Physical Exam Constitutional: no apparent distress, appears nourished, not in pain Eyes: PERRL, anicteric sclera, EOMI Ears, Nose, Mouth, Throat: moist mucous membranes, hearing normal, ears appear normal, no oral mucosal ulcers Cardiovascular: regular rate and rhythym, no murmur, rub, or gallop, No edema Respiratory: no respiratory distress, no rales or rhonchi, clear to auscultation Gastrointestinal: normoactive bowel sounds, soft, non-tender abdomen, no palpable masses Genitourinary: no bladder fullness, no bladder tenderness, no renal bruits Skin: no rashes or abrasions, no fluctuance, no induration Musculoskeletal: full muscle strength, no muscle tenderness, normal joint ROM Neurologic: AAOx3, other (subtle dysarthria (chornic)) Psychiatric: interacting appropriately, not anxious, not encephalopathic, thought process linear ICD10 Worksheet Patient Problems: Problems Problem Status Onset Atrial fibrillation Acute Upper GI bleed Acute Atrial fibrillation with RVR Acute CVA (cerebral vascular accident) Acute Forehead laceration Acute
--- NOTE | 2019-03-08 13:37 | SOAPPROG ---
SOAP Progress Note Assessment/Plan: Assessment:Plan: 1) - clean based low risk rebleed, from aspirin. PPI BID 4 weeks daily total 8 weeks. If no salvage determiner aspirin or NSAID's then just 8 weeks treatment 2) anemia - stable, no further ongoing GI blood loss, no melena today, BUN/Cr ratio down 3) h pylori - bx pending, if not noted recheck h pylori ab (was negative years ago) 4) Afib - had two episode rapid afib in last 24 hours - as per hospitalist 5) anti-coagulation - back on Eliquis given low risk findings at EGD 5) LFT's - have been elevated is pat as well. I will order serologic eval will in house and order RUQ sonogram 6) dispo - prob home tomorrow if stable Subjective: cc- UGI bleed from , anemia, afib, elevated LFT's feels well, no abdo pain no n/v no melena wants to go home but explained with episodes of rapid afib best to at least stay overnight and also watch for any rebleed as Eliquis restarted Objective: Vital Signs Temp Pulse Resp BP Pulse Ox 37.2 C 73 17 111/68 93 03/08/19 11:43 03/08/19 11:43 03/08/19 11:43 03/08/19 11:43 03/08/19 11:43 Laboratory Results 03/08/19 04:40 03/08/19 04:40 03/07/19 03/08/19 03/09/19 05:59 05:59 05:59 Intake Total 2800 1860 480 Output Total 1000 Balance 1800 1860 480 PT 15.2 SEC (12.0-15.0) H 03/06/19 17:15 INR 1.25 (0.83-1.16) H 03/06/19 17:15 A+Ox3 CTA S1S2 +Bs soft nt Laboratory Tests 03/06/19 03/06/19 03/07/19 17:15 20:00 04:40 Hgb 10.6 L 9.1 L BUN 66 H Creatinine 1.1 H AST 50 H ALT 96 H Alkaline Phosphatase 182 H 03/07/19 03/07/19 03/08/19 04:40 07:50 04:40 Hgb 10.0 L 10.0 L BUN 41 H Creatinine 0.6 AST ALT Alkaline Phosphatase 03/08/19 04:40 Hgb BUN 18 Creatinine 0.7 AST ALT Alkaline Phosphatase ICD10 Worksheet Patient Problems: Problems Problem Status Onset Atrial fibrillation Acute Upper GI bleed Acute Atrial fibrillation with RVR Acute CVA (cerebral vascular accident) Acute Forehead laceration Acute
[2019-03-08] MEDS: LORazepam 2 MG/ML INJ IVP PRN (21:12)
[2019-03-08] MEDS: traZODone 50 MG TAB PO SCH (21:12)
[2019-03-08] MEDS: ATORVASTATIN CALCIUM 20 MG TAB PO SCH (21:13)
[2019-03-09 03:53] LABS: HEPATITIS A ANTIBODY TOTAL NEGATIVE (NEGATIVE); HEPATITIS B SURFACE ANTIGEN NEGATIVE (NEGATIVE); HEPATITIS C ANTIBODY TOTAL NEGATIVE (NEGATIVE)
[2019-03-09] MEDS: THYROID 60 MG TAB PO SCH (05:14)
[2019-03-09] MEDS ORDERED: THYROID 60 MG TAB PO SCH (06:00)
[2019-03-09 07:33] VITALS: BP 109/57
[2019-03-09] MEDS: METOPROLOL TARTRATE 50 MG TAB PO SCH (09:32)
[2019-03-09] MEDS: PANTOPRAZOLE SODIUM 40 MG TAB PO SCH (09:32)
[2019-03-09] MEDS: APIXABAN 5 MG TAB PO SCH (09:32)
--- NOTE | 2019-03-09 10:03 | ASDISCHSUM ---
Discharge Information Plan Status:Home with No Needs Medically Cleared to Leave:03/09/2019 Discharge Date:03/09/2019 CM D/C Disposition:Home, Routine, Self-Care ADT D/C Disposition:Home, Routine, Self-Care Projected Discharge Date:03/09/2019 Transportation at D/C:Family Discharge Delay Reason: Follow-Up Date:03/09/2019 Discharge Slot: Final Diagnosis: Placement Information Patient Contact Information Contact Name:AVERY Relationship: Address:[address] City:[place] Alternate Phone: [facility]/Zip Code:[place] [address] Email: Financial Information Financial Class:Medicare Primary Plan Desc:MEDICARE INPATIENT Primary Plan Number:[id number] Secondary Plan Desc:JACQUELINE FLORENCE Secondary Plan Number:[id number] Assessment Information BC CM Progress Note CM Note CM Note Notes: Pt is a 68 yo F who lives with her , Abhijit. Pt underwent Upper GI endoscopy. GI consulted. PT pending eval; OT rec:home independent. CM to follow. Plan: TBD Date Signed: 03/07/2019 12:48 PM Electronically Signed By:ANDRES Malik Case Management Discharge Plan Note Case Management Discharge Discharge Order Complete? Answers: Yes Patient to Obtain Answers: via Family Medications Transportation Arranged Answers: Family/Friends Discharge Comments Notes: CM met with pt to discuss discharge plan. Is being discharged independently with outpatient follow-up as inidicated.Pt has been cleared by PT/OT to go home. Pt signed IM, is able to transport and help obtain medications. No other CM needs identified. Date Signed: 03/09/2019 09:58 AM Electronically Signed By:ANDRES Malik LACE LACE Length of stay for Answers: 2 days current admission Acuity / Level of Answers: Yes Care: Did the patient have an inpatient admission? Comorbidities - select Answers: Other Notes: afib, HTN, GI bleed all that apply # of Emergency department Answers: 1-2 visits in the last 6 months Score: 7 Date Signed: 03/09/2019 10:01 AM Electronically Signed By:ANDRES Malik Intervention Information Intervention Type:*Incorrect Registration Date of Service:03/06/2019 08:54 PM Patient Type:Observation Staff Member:Laney Talley Hours: Discipline: Severity: Comment:
--- NOTE | 2019-03-09 10:07 | ASMTLACE ---
LACE Length of stay for Answers: 2 days current admission Acuity / Level of Answers: Yes Care: Did the patient have an inpatient admission? Comorbidities - select Answers: Other Notes: afib, HTN, GI bleed all that apply # of Emergency department Answers: 1-2 visits in the last 6 months Score: 7 Date Signed: 03/09/2019 10:01 AM Electronically Signed By:ANDRES Malik
--- NOTE | 2019-03-10 01:15 | GDS ---
[f rep st] DISCHARGE SUMMARY DISCHARGE DIAGNOSES: 1. Upper gastrointestinal bleed. 2. Atrial fibrillation with rapid ventricular response. 3. History of cerebrovascular accident. 4. Acute kidney injury, resolved. 5. Hypertension. 6. Hypothyroidism. CONSULTANTS: Dr. Bryan Pereira, gastroenterology. PROCEDURES: Upper endoscopy performed March 07, 2019, by Dr. Bryan Pereira, showed nonbleeding rick dilia ulcer with no stigmata of bleeding, as well as gastritis and grade B reflux esophagitis. Biopsie s were obtained and remained pending. HISTORY: For details, please see history and physical dated March 06, 2019. In brief, the patient i s a 68-year-old female with history of atrial fibrillation, hypertension, and previous stroke who pre sented to the emergency department with hematemesis. She was admitted to the hospital for further ma nagement. HOSPITAL COURSE: The patient was admitted to the intensive care unit. Her hemoglobin dropped from 1 2.8 to 9. This remained stable over the past 48 hours. She has had no further hematemesis or meleni c stools. GI consult was obtained on arrival, and she underwent upper endoscopy with results describ ed above. Her gastritis and nonbleeding peptic ulcer were treated with proton pump inhibitor. Durin g her hospital course, she did develop an episode of rapid atrial fibrillation. Her metoprolol was i ncreased from 50 mg twice daily to 75 mg twice daily. Her blood pressures remain on the low-normal s karishma with a discharge blood pressure of 109/57. With the increase of her metoprolol and low blood pre ssures in the setting of recent GI bleed, I recommend she hold her lisinopril and amlodipine for now. In addition, aspirin is held. She was restarted on Eliquis 24 hours prior to discharge given her p revious stroke and relatively benign findings on endoscopy. She has been monitored for 24 hours afte r resumption of Eliquis, and there has been no further evidence of bleeding. The patient wishes to d ischarge home. DISPOSITION: Patient is discharged home in stable condition. FOLLOWUP: 1. Dr. Fatuma Fernandez to repeat blood pressure and consider if and when she should resume amlodipine and/or lisinopril. 2. Dr. Bryan Pereira for followup on multiple pending biopsies from her upper endoscopy. DISCHARGE MEDICATIONS: Please see [facility] for completed outpatient medication list. New medications on discharge include Protonix 40 mg p.o. b.i.d., #120, for an 8-week course, no refil ls. Changed medications: Metoprolol is increased from 50 to 75 mg p.o. by b.i.d. She will continue all other outpatient medications as previously prescribed, including trazodone 50 m g p.o. q.h.s.; atorvastatin 20 mg p.o. q.h.s.; [place] Thyroid 90 mg p.o. daily; and [place] thyroid 15 mg p.o. Saturday, Saturday, Saturday. Eliquis was restarted at 5 mg p.o. b.i.d. Discontinued medications as above. Lisinopril and amlodipine are currently held. Aspirin is discont inued due to the GI bleed. We discussed the risks of resuming Eliquis, that she could rebleed again; however, her stroke risk is significant given her previous stroke, and she resumes Eliquis with the understanding of her bleedin g risk. /[id number]/MODL
--- NOTE | 2019-03-12 08:57 | PQFORM ---
PHYSICIAN QUERY FORM Needs Your Response This query form is being sent to you to assure this patient record is coded properly. Please respond to the question below: SENIOR TERADATA DEVELOPER QUESTION: Dr Srivastava Chart documentation reflects diagnosis of Acute Blood Loss Anemia and Patient was given KCentra during this admission. Do you agree with ABLA ? _x_ Yes __ No __ Other (Please Specify ) __ Unable to Determine Thank You Mariangel WHITE Clinical Reviewer INSTRUCTIONS FOR RESPONSE: Answer question by clicking on the "Edit Document" button. Move cursor to area below the stars. When complete, hit "Save." Click on the "Sign" button, then click "Sign" again. Type in your PIN and hit "Enter." MTDD
== END 2019-03-09 10:31 | disposition home or self-care (01) | DRG 378 ==
LOC: OBSVTOIN 17:59 → F2N 18:58
PROVIDERS: ADMIT Internal Medicine; ATTEND Internal Medicine
PROC: 5A2204Z Restoration of Cardiac Rhythm, Single (ICD-10-PCS; 2019-03-06)
PROC: 30283B1 Transfusion of Nonautologous 4-Factor Prothrombin Complex Concentrate into Vein, Percutaneous Approach (ICD-10-PCS; 2019-03-07)
PROC: 0DB68ZX Excision of Stomach, Via Natural or Artificial Opening Endoscopic, Diagnostic (ICD-10-PCS; principal; 2019-03-07 09:00)
PROC: 0DB48ZX Excision of Esophagogastric Junction, Via Natural or Artificial Opening Endoscopic, Diagnostic (ICD-10-PCS; principal; 2019-03-07 09:00)
DX: K25.4 Chronic or unspecified gastric ulcer with hemorrhage (principal); D62 Acute posthemorrhagic anemia; K20.9 Esophagitis, unspecified; I48.91 Unspecified atrial fibrillation; I10 Essential (primary) hypertension; E03.9 Hypothyroidism, unspecified; F17.210 Nicotine dependence, cigarettes, uncomplicated; I69.328 Other speech and language deficits following cerebral infarction
CPT/HCPCS: 86255-90; 86708-90; 96374; 97161-GP; 97166-GO; C9132; G0472; J2060; J2704

== ENCOUNTER → 2019-03-23 | Outpatient (CLI) | payer OTHER | LOC: BHFA 13:00 | PROVIDERS: ATTEND Internal Medicine Cardiovascular Disease | DX: I48.91 Unspecified atrial fibrillation (principal) | CPT/HCPCS: 78452; 93017; A9500 ==